=== PATIENT | male | born 1940 | race Caucasian/White ===

== ENCOUNTER 2017-07-22 05:41 | Day surgery (SDC) | payer OTHER ==
[2017-07-22] MEDS ORDERED: CEFAZOLIN 2 GM/50 ML (PMX) 50 ML IVPB (06:00)
[2017-07-22] MEDS ORDERED: METOCLOPRAMIDE 10 MG INJ (07:00)
[2017-07-22] MEDS ORDERED: CEFAZOLIN 1 GM INJ (07:00)
[2017-07-22] MEDS ORDERED: ACETAMINOPHEN 1000 MG/100 ML IVPB (07:00)
[2017-07-22] MEDS ORDERED: hydrALAzine 20 MG INJ IV (07:30)
[2017-07-22] MEDS ORDERED: FENTAnyl 50 MCG/ML VIAL IV ×2 (07:30)
[2017-07-22] MEDS ORDERED: ONDANSETRON 4 MG INJ IV (07:30)
[2017-07-22] MEDS ORDERED: METOCLOPRAMIDE 10 MG INJ IV (07:30)
[2017-07-22] MEDS ORDERED: HYDROmorphONE (0.2 MG/ML) 10ML SYG IV (07:30)
[2017-07-22] MEDS ORDERED: LABETALOL HCL 20MG INJ IV (07:30)
[2017-07-22] MEDS ORDERED: MIDAZOLAM 1 MG/ML 2 ML INJ (07:53)
[2017-07-22] MEDS ORDERED: FENTAnyl 50 MCG/ML VIAL (07:54)
[2017-07-22] MEDS ORDERED: ONDANSETRON 4 MG INJ (08:50)
[2017-07-22] MEDS ORDERED: PROPOFOL 20 ML (08:52)
[2017-07-22] MEDS ORDERED: ETOMIDATE 20 MG INJ (08:52)
[2017-07-22] MEDS ORDERED: LIDOCAINE 2% (SDV) 5 ML INJ (08:53)
[2017-07-22] MEDS: LIDOCAINE 2% (MDV) 20 ML INJ (08:59)
[2017-07-22] MEDS: POLYMYXIN/BACITRACIN 1L IRRIG (08:59)
[2017-07-22] MEDS: BUPIVACAINE 0.5% (SDV) 30 ML INJ (08:59)
== END 2017-07-22 11:10 | disposition home or self-care (01) ==
LOC: SDS 05:41
DX: I96 Gangrene, not elsewhere classified (principal); I73.9 Peripheral vascular disease, unspecified; I25.10 Atherosclerotic heart disease of native coronary artery without angina pectoris; I10 Essential (primary) hypertension; E11.9 Type 2 diabetes mellitus without complications; Z86.73 Personal history of transient ischemic attack (TIA), and cerebral infarction without residual deficits
CPT/HCPCS: 11042; 71045; 82962; 88304

== ENCOUNTER 2017-09-09 09:36 | Day surgery (SDC) | payer OTHER ==
[2017-09-09] MEDS: LIDOCAINE 1% (MPF) 30 ML INJ
[2017-09-09] MEDS: POLYMYXIN/BACITRACIN 1L IRRIG IRR
[2017-09-09] MEDS: LIDOCAINE 2% (MDV) 20 ML INJ INJ
[~2017-09-09 09:36] MED LIST: CEFAZOLIN 1 GM INJ; CEFAZOLIN 2 GM/50 ML (PMX) 50 ML IVPB
[2017-09-09] MEDS ORDERED: ONDANSETRON 4 MG INJ IV (11:00)
[2017-09-09] MEDS ORDERED: LABETALOL HCL 20MG INJ IV (11:00)
[2017-09-09] MEDS ORDERED: hydrALAzine 20 MG INJ IV (11:00)
[2017-09-09] MEDS ORDERED: HYDROmorphONE (0.2 MG/ML) 10ML SYG IV ×2 (11:00)
[2017-09-09] MEDS ORDERED: BUPIVACAINE 0.25% (MPF) 30 ML INJ (11:05)
[2017-09-09] MEDS ORDERED: FENTAnyl 50 MCG/ML VIAL (11:07)
[2017-09-09] MEDS ORDERED: PROPOFOL 20 ML (11:07)
[2017-09-09] MEDS ORDERED: LIDOCAINE 2% (MDV) 20 ML INJ (11:35)
[2017-09-09] MEDS: HYDROmorphONE (0.2 MG/ML) 10ML SYG IV (12:28)
== END 2017-09-09 15:35 | disposition home or self-care (01) ==
LOC: SDS 09:36
DX: M86.671 Other chronic osteomyelitis, right ankle and foot (principal); E11.42 Type 2 diabetes mellitus with diabetic polyneuropathy; I73.9 Peripheral vascular disease, unspecified; E78.5 Hyperlipidemia, unspecified; I69.359 Hemiplegia and hemiparesis following cerebral infarction affecting unspecified side; F03.90 Unspecified dementia, unspecified severity, without behavioral disturbance, psychotic disturbance, mood disturbance, and anxiety
CPT/HCPCS: 11044; 73620-52; 82962; 87070; 87075; 87102; 87116